=== PATIENT | female | born 1965 | race Caucasian/White ===

== ENCOUNTER 2020-09-30 11:18 | Inpatient (IN) | payer SELFPAY ==
[2020-09-30] VITALS (25 sets, daily range): BP systolic 164–266; BP diastolic 91–152; PULSE 73–110; RESP 16–26; TEMP 36.4–37; O2SAT 96–98; BMI 34.3; BMI 41.6
--- NOTE | 2020-09-30 11:35 | CTR_ITS ---
PROCEDURE INFORMATION: Exam: CT Head Without Contrast Exam date and time: 09/30/2020 11:37 AM Age: 55 years old Clinical indication: Altered mental status/memory loss; Confusion or disorientation; Additional info: Symptoms of acute stroke TECHNIQUE: Imaging protocol: Computed tomography of the head without contrast. Radiation optimization: All CT scans at this facility use at least one of these dose optimization techniques: automated exposure control; mA and/or kV adjustment per patient size (includes targeted exams where dose is matched to clinical indication); or iterative reconstruction. COMPARISON: No relevant prior studies available. RADIATION DOSE METRICS: Total DLP (mGy-cm): 771.26 FINDINGS: Brain: There is a focus of decreased attenuation in the genu of the internal capsule on the right, consistent with infarct. No hemorrhage. Unremarkable white matter. No mass effect or midline shift. Cerebral ventricles: No ventriculomegaly. Bones/joints: Unremarkable. No acute fracture. Paranasal sinuses: Visualized sinuses are unremarkable. No fluid levels. Mastoid air cells: Visualized mastoid air cells are well aerated. Soft tissues: Unremarkable. CT/CT head wo con* [id number] IMPRESSION: Focal area of infarction at the genu of the internal capsule on the right. Radiation Dose CTDIVOL = (mGy): DLP = 771.26 (mGy-cm)
--- NOTE | 2020-09-30 11:35 | XRR_ITS ---
PROCEDURE INFORMATION: Exam: XR Chest, 1 View Exam date and time: 09/30/2020 12:14 PM Age: 55 years old Clinical indication: Other: Left sided weakness; Additional info: Reduced breath sounds. TECHNIQUE: Imaging protocol: XR of the chest Views: 1 view. COMPARISON: No relevant prior studies available. FINDINGS: Lungs: Unremarkable. No consolidation. Pleural spaces: Unremarkable. No pleural effusion. No pneumothorax. Heart/Mediastinum: Unremarkable. No cardiomegaly. Bones/joints: Unremarkable. XR/XR chest 1V portable [id number] IMPRESSION: No acute findings.
--- NOTE | 2020-09-30 11:49 | ECG_ITS ---
[facility] Test Date: 2020-09-30 Pat Name: Jazmin Acevedo Department: Room: Gender: Female Coding Analyst: : 1965 Requested By: Carlos Manuel Baum Order Number: [id number] Linda MD: Jacqueline Higuera M.D. Measurements Intervals [place] Rate: 102 P: 54 MO: 160 QRS: 10 QRSD: 83 T: 105 QT: 321 QTc: 420 Interpretive Statements SINUS TACHYCARDIA POSSIBLE LEFT ATRIAL ENLARGEMENT [-0.1mV P WAVE IN V1/V2] LEFT VENTRICULAR HYPERTROPHY AND ST-T CHANGE [VOLTAGE CRITERIA PLUS ST/T ABNORMALITY] POSSIBLE SEPTAL MYOCARDIAL INFARCTION , OF INDETERMINATE AGE [30 ms Q WAVE IN V1/V2] No previous ECG available for comparison Electronically Signed On 09-30-2020 18:36:54 CHICKEN FANCIER by Jacqueline Higuera M.D. [id number]
[2020-09-30 11:51] LABS: Glucose Point of Care 167 mg/dL (70-110)
[2020-09-30 11:55] LABS: Basophils # 0.1 10^3/uL (0.0-0.1); Basophils % 1.1 %; Eosinophils # 0.2 10^3/uL (0.0-0.8); Eosinophils % 2.1 %; Hematocrit 50.9 % (37.0-47.0); Hemoglobin 16.8 g/dL (11.5-15.3); Lymphocytes # 2.2 10^3/uL (0.8-4.8); Lymphocytes % 23.5 %; Mean Corpuscular Hemoglobin 30.1 pg (28.0-34.0); Mean Corpuscular Volume 91.1 fL (81-99); Monocytes # 0.6 10^3/uL (0.2-0.9); Monocytes % 5.9 %; Nucleated Red Blood Cells % 0 %; Platelet Count 252 10^3/cmm (130-400); Red Blood Count 5.59 10^6/uL (4.1-5.3); Red Cell Distribution Width 13.2 % (12.1-15.1); White Blood Count 9.4 10^3/uL (4.0-10.0)
[2020-09-30] MEDS: LORazepam 2 mg/mL INJ 1 mL 1 MG IVP (11:57)
[2020-09-30 12:06] LABS: INR 0.91 (0.8-1.2); Partial Thromboplastin Time 28.1 SECONDS (23.9-36.7)
[2020-09-30] MEDS: amlodipine 5 mg Tablet 2.5 MG PO (12:15)
[2020-09-30] MEDS: morphine 4 mg/mL SDV 1 mL 2 MG IVP (12:15)
--- NOTE | 2020-09-30 12:21 | CTR_ITS ---
PROCEDURE INFORMATION: Exam: CT Angiography Head With Contrast, Arteries Exam date and time: 09/30/2020 12:39 PM Age: 55 years old Clinical indication: Other: Left side weakness; Additional info: Acute CVA TECHNIQUE: Imaging protocol: Computed tomography angiography of the head with intravenous contrast. 3D rendering (Not supervised by radiologist): MIP and/or 3D reconstructed images were created by the technologist. Radiation optimization: All CT scans at this facility use at least one of these dose optimization techniques: automated exposure control; mA and/or kV adjustment per patient size (includes targeted exams where dose is matched to clinical indication); or iterative reconstruction. Contrast material: OMNI 350; Contrast volume: 95 ml; Contrast route: INTRAVENOUS (IV); COMPARISON: No relevant prior studies available. RADIATION DOSE METRICS: Total DLP (mGy-cm): 2444.28 FINDINGS: ANTERIOR CIRCULATION: Right internal carotid artery: There is atherosclerotic plaque most prominent in the carotid siphons with luminal irregularity. Intracranial segment is patent with no significant stenosis. No aneurysm. Right middle cerebral artery: Unremarkable. No occlusion or significant stenosis. No aneurysm. Right anterior cerebral artery: Unremarkable. No occlusion or significant stenosis. No aneurysm. Left internal carotid artery: There is atherosclerotic plaque most prominent in the carotid siphons with luminal irregularity. Intracranial segment is patent with no significant stenosis. No aneurysm. Left middle cerebral artery: Unremarkable. No occlusion or significant stenosis. No aneurysm. Left anterior cerebral artery: Unremarkable. No occlusion or significant stenosis. No aneurysm. POSTERIOR CIRCULATION: Right vertebral artery: Normal variant hypoplastic right vertebral artery. No occlusion or significant stenosis. No aneurysm. Left vertebral artery: Patient is left vertebral artery dominant. No occlusion or significant stenosis. No aneurysm. Basilar artery: Unremarkable. No occlusion or significant stenosis. No aneurysm. Right posterior cerebral artery: Unremarkable. No occlusion or significant stenosis. No aneurysm. Left posterior cerebral artery: Unremarkable. No occlusion or significant stenosis. No aneurysm. Brain: No definite mass, mass effect, or midline shift. Cerebral ventricles: No ventriculomegaly. Bones/joints: Unremarkable. No acute fracture. Soft tissues: Unremarkable. IMPRESSION: No large vessel stenosis or occlusion. PROCEDURE INFORMATION: Exam: CT Angiography Neck With Contrast Exam date and time: 09/30/2020 12:39 PM Age: 55 years old Clinical indication: Other: Left side weakness; Additional info: Acute CVA TECHNIQUE: Imaging protocol: Computed tomography angiography of the neck with intravenous contrast. 3D rendering (Not supervised by radiologist): MIP and/or 3D reconstructed images were created by the technologist. Radiation optimization: All CT scans at this facility use at least one of these dose optimization techniques: automated exposure control; mA and/or kV adjustment per patient size (includes targeted exams where dose is matched to clinical indication); or iterative reconstruction. Contrast material: OMNI 350; Contrast volume: 95 ml; Contrast route: INTRAVENOUS (IV); COMPARISON: No relevant prior studies available. RADIATION DOSE METRICS: Total DLP (mGy-cm): 2444.28 FINDINGS: Motion artifact does moderately limit the sensitivity of this examination. Right common carotid artery: No stenosis. No dissection or occlusion. Right internal carotid artery: There is atherosclerotic plaque at the origin with a short segment of 50% stenosis measuring 5 mm in the craniocaudad dimension. Right external carotid artery: No occlusion or stenosis of the origin. Right vertebral artery: No stenosis. No dissection or occlusion. Left common carotid artery: No stenosis. No dissection or occlusion. Left internal carotid artery: There is atherosclerotic plaque at the origin with a short segment of 40% stenosis at the origin. Left external carotid artery: No occlusion or stenosis of the origin. Left vertebral artery: Scattered atherosclerotic plaque. No stenosis. No dissection or occlusion. Bones/joints: No acute fracture. Soft tissues: Normal. No significant soft tissue swelling. CT/CT angio headneck* [id number] IMPRESSION: There is atherosclerotic plaque at the origins of the right and left internal carotid arteries with short segments of stenosis as described above. REFERENCES: NASCET CRITERIA. The degree of internal carotid artery stenosis is based on NASCET criteria. Normal is no stenosis. Mild is less than 50% stenosis. Moderate is 50-69% stenosis. Severe is 70% to 99% stenosis. Total occlusion is no detectable patent lumen. Radiation Dose CTDIVOL = (mGy): DLP = 2444.28~2444.28 (mGy-cm)
[2020-09-30 12:38] LABS: Alanine Aminotransferase 39 U/L (0-33); Alkaline Phosphatase 142 IU/L (35-105); Blood Urea Nitrogen 13 mg/dL (6-20); Calcium 10.6 mg/dL (8.5-10.5); Carbon Dioxide 24 mmol/L (22-29); Chloride 101 mmol/L (98-107); Globulin 2.7 g/dL (1.3-4.6); Glomerular Filtration Rate 103.8 mL/min (90-130); Glucose 146 mg/dL (65-115); Osmolality Calculated 289 mOsm/kg (285-295); Sodium 138 mmol/L (136-145); Total Bilirubin 0.4 mg/dL (0.15-1.2); Total Protein 7.7 g/dL (6.6-8.7)
[2020-09-30 12:39] LABS: Troponin(5th) Baseline 17 ng/L (0-10)
[2020-09-30 12:41] LABS: Anion Gap 16.8 (5-19)
[2020-09-30 12:42] LABS: Aspartate Amino Transferase 36 U/L (0-32); Potassium 3.8 mmol/L (3.5-5.1)
[2020-09-30] MEDS: iohexol 350 mg/mL 100 mL Btl IV (12:58)
--- NOTE | 2020-09-30 12:59 | W.ED.NEUROSD ---
HPI - Neuro Symptoms/Deficit General: Chief Complaint: Neuro Symptoms/Deficit Stated Complaint: Left side numb/poss Stroke Time Seen by Provider: 09/30/20 11:25 History of Present Illness: HPI Narrative: The patient is a 55-year-old female who comes to the ER complaining of left-sided numbness. She says approximately 30 minutes to an hour prior to arrival she began having left toe then foot then leg numbness which continued to progress to the entire left side of her body including her arm and face. She has never had this before and has no medical problems. Her blood pressure on arrival was 266/107. She says she does not regularly see a doctor however when she checks her blood pressure at home she gets systolic 120s. Her mother had a stroke at 55 years old as well. On exam she has intact sensation so there likely paresthesias. NIH score 1 on arrival. Onset (ago): hour(s) (1) Time: 10:30 Location: left face, left arm and left leg History of same: No Severity: moderate Quality: numb Associated symptoms: Reports no associated symptoms; Deny chest pain or headache(s) Review of Systems General: Reports: 10 or more systems reviewed and unremarkable except in HPI and below Const: Denies: fatigue Eyes: Denies: change in vision, blurry vision or eye redness ENMT: Denies: throat pain, swelling of lips/tongue, ear or mastoid pain or nasal congestion Card: Denies: chest pain, palpitations, irregular heart rhythm, edema, dyspnea on exertion or orthopnea Resp: Denies: dyspnea, productive cough or non-productive cough GI: Denies: abdominal pain, diarrhea or GI cramping : Denies: flank pain, difficulty voiding, urinary frequency or urinary urgency Musc: Denies: neck pain, back pain, extremity pain, joint pain, joint redness, limited range of motion or muscle weakness Skin/Breast: Denies: rash, pruritus, erythema, skin pain or skin tenderness Neuro: Reports: numbness in extremities; Denies: headache(s), weakness in extremities, sensory changes, difficulty walking, dizziness, confusion or Slurred speech present Psych: Denies: anxiety or depression Endo: Denies: polyuria All/Imm: Denies: urticaria, throat swelling or tongue swelling Physical Exam Const: COMMON NORMALS: no acute distress, average body habitus, patient oriented x3, no limitations, healthy appearing, alert and well nourished GENERAL APPEARANCE: cooperative, comfortable, well kempt and well developed ORIENTATION/CONSCIOUSNESS: Yes awake, Yes oriented to person, Yes oriented to place and Yes oriented to time HENMT: COMMON NORMALS: normocephalic, external ears normal and Normal external nose present HEAD & SCALP: normal to inspection and normocephalic NOSE: Normal external nose present EXTERNAL EAR: Yes external ears normal MOUTH: Normal oral and palatal mucosa present THROAT: posterior oropharynx normal Eye: COMMON NORMALS: Equal, round and reactive pupils present and EOMs intact bilaterally GENERAL EYE: appearance normal, both eyes and all related structures PUPIL: Yes Equal, round and reactive pupils present Neck/C-Spine: COMMON NORMALS: full ROM, no lymphadenopathy, no meningeal signs and no JVD GENERAL: Yes normal visual inspection Lymph: LYMPHATIC: no lymphadenopathy noted Chest: COMMONS NORMALS: normal inspection of the chest and normal palpation of entire chest wall Resp: COMMON NORMALS: normal respiratory effort, No retractions, No use of accessory muscles, clear to auscultation bilaterally and percussion normal EFFORT & INSPECTION: Yes able to speak in complete sentences AUSCULTATION: clear to auscultation bilaterally PERCUSSION: percussion normal Cardio: COMMON NORMALS: no JVD, regular rate, regular rhythm, S1 normal heart sound present, S2 normal heart sound present and Peripheral pulses 2+ throughout RATE: regular rate RHYTHM: regular rhythm HEART SOUNDS: S1 normal heart sound present and S2 normal heart sound present PERIPHERAL PULSES: Peripheral pulses 2+ throughout GI: COMMON NORMALS: Normal to inspection, nondistended, normoactive bowel sounds present, Soft to palpation, non-tender and no masses INSPECTION: Yes normal to inspection PALPATION: Yes Soft to palpation : COMMON NORMALS: Yes no CVA tenderness BLADDER/KIDNEY EXAM: Yes no CVA tenderness Back/Pelvis: COMMON NORMALS: no CVA tenderness, thoracic and lumbar spine normal to inspection, no thoracic nor lumbar tenderness and thoraco-lumbar ROM normal Extremity: COMMON NORMALS: normal to inspection, full ROM, capillary refill normal, no joint enlargement and no pedal edema GENERAL: Yes normal exam except as noted Neuro: COMMON NORMALS: patient oriented x3, CN's II-XII intact bilaterally, moves all extremities, no focal motor deficits, no sensory deficits noted and gait normal SENSORIUM/ORIENTATION: Yes alert, Yes oriented to person, Yes oriented to place and Yes oriented to time MENINGEAL SIGNS: Yes no meningeal signs OTHER: She has intact sensation bilaterally so the numbness she is feeling are more likely paresthesias. Full strength in all extremities. No slurred speech. No focal weakness noted. No drift in her extremities. No dysarthria Psych: COMMON NORMALS: mental status grossly normal, Normal thought process present, cooperative, normal affect and speech normal APPEARANCE: Yes well kempt SPEECH: Yes normal speech MOOD & AFFECT: Yes anxious THOUGHT PROCESS: Normal thought process present Skin: COMMON NORMALS: no rashes or lesions noted GENERAL SKIN EXAM: no rashes or lesions noted Course Vital Signs: Vital signs: Vital Signs Temperature 98.6 F 09/30/20 11:20 Pulse Rate 103 H 09/30/20 12:22 Respiratory Rate 20 H 09/30/20 12:22 Blood Pressure 215/97 09/30/20 12:22 Pulse Oximetry 97 09/30/20 12:22 MDM - Neuro Symptoms/Deficit MDM Narrative: Medical decision making narrative: This patient is having an acute CVA located in the right internal capsule. Discussed with Dr. Tan her care. She recommended no blood pressure control. Recommended amlodipine, Plavix, Lipitor, echocardiogram, 20-day event monitor and CT angiogram of the head and neck. Discussed with Dr. Davey who will follow this patient in [facility]. Lab Data: Labs: Lab Results 09/30/20 09/30/20 09/30/20 Range/Units 11:45 11:46 11:46 WBC 9.4 (4.0-10.0) 10^3/ uL RBC 5.59 H (4.1-5.3) 10^6/u L Hgb 16.8 H (11.5-15.3) g/dL Hct 50.9 H (37.0-47.0) % MCV 91.1 (81-99) fL MCH 30.1 (28.0-34.0) pg MCHC 33.0 (30.0-36.0) g/dL RDW 13.2 (12.1-15.1) % Plt Count 252 (130-400) 10^3/c mm MPV 11.0 H (7.4-10.4) fL Neut % (Auto) 67.0 % Lymph % (Auto) 23.5 % [place] % (Auto) 5.9 % Eos % (Auto) 2.1 % Baso % (Auto) 1.1 % Neut # (Auto) 6.30 (1.8-7.7) 10^3/u L Lymph # (Auto) 2.2 (0.8-4.8) 10^3/u L [place] # (Auto) 0.6 (0.2-0.9) 10^3/u L Eos # (Auto) 0.2 (0.0-0.8) 10^3/u L Baso # (Auto) 0.1 (0.0-0.1) 10^3/u L Nucleated RBC % (a uto) 0 % Nucleated RBCs # 0.0 /100WBC PT 12.60 (12.1-14.9) SECO NDS INR 0.91 (0.8-1.2) APTT 28.1 (23.9-36.7) SECO NDS Sodium Potassium Chloride Carbon Dioxide Anion Gap BUN Creatinine GFR Calculation Glucose POC Glucose 167 H (70-110) mg/dL Calculated Osmolal ity Calcium Total Bilirubin AST ALT Alkaline Phosphata se Troponin T Baselin e Total Protein Albumin Globulin 09/30/20 09/30/20 09/30/20 Range/Units 11:46 11:46 12:11 WBC (4.0-10.0) 10^3/ uL RBC (4.1-5.3) 10^6/u L Hgb (11.5-15.3) g/dL Hct (37.0-47.0) % MCV (81-99) fL MCH (28.0-34.0) pg MCHC (30.0-36.0) g/dL RDW (12.1-15.1) % Plt Count (130-400) 10^3/c mm MPV (7.4-10.4) fL Neut % (Auto) % Lymph % (Auto) % [place] % (Auto) % Eos % (Auto) % Baso % (Auto) % Neut # (Auto) (1.8-7.7) 10^3/u L Lymph # (Auto) (0.8-4.8) 10^3/u L [place] # (Auto) (0.2-0.9) 10^3/u L Eos # (Auto) (0.0-0.8) 10^3/u L Baso # (Auto) (0.0-0.1) 10^3/u L Nucleated RBC % (a uto) % Nucleated RBCs # /100WBC PT (12.1-14.9) SECO NDS INR (0.8-1.2) APTT (23.9-36.7) SECO NDS Sodium Cancelled 138 Potassium Cancelled 3.8 Chloride Cancelled 101 Carbon Dioxide Cancelled 24 Anion Gap Cancelled 16.8 BUN Cancelled 13 Creatinine Cancelled 0.6 GFR Calculation Cancelled 103.8 Glucose Cancelled 146 H POC Glucose (70-110) mg/dL Calculated Osmolal ity Cancelled 289 Calcium Cancelled 10.6 H Total Bilirubin Cancelled 0.4 AST Cancelled 36 H ALT Cancelled 39 H Alkaline Phosphata se Cancelled 142 H Troponin T Baselin e Cancelled Total Protein Cancelled 7.7 Albumin Cancelled 5.0 Globulin Cancelled 2.7 09/30/20 Range/Units 12:11 WBC (4.0-10.0) 10^3/ uL RBC (4.1-5.3) 10^6/u L Hgb (11.5-15.3) g/dL Hct (37.0-47.0) % MCV (81-99) fL MCH (28.0-34.0) pg MCHC (30.0-36.0) g/dL RDW (12.1-15.1) % Plt Count (130-400) 10^3/c mm MPV (7.4-10.4) fL Neut % (Auto) % Lymph % (Auto) % [place] % (Auto) % Eos % (Auto) % Baso % (Auto) % Neut # (Auto) (1.8-7.7) 10^3/u L Lymph # (Auto) (0.8-4.8) 10^3/u L [place] # (Auto) (0.2-0.9) 10^3/u L Eos # (Auto) (0.0-0.8) 10^3/u L Baso # (Auto) (0.0-0.1) 10^3/u L Nucleated RBC % (a uto) % Nucleated RBCs # /100WBC PT (12.1-14.9) SECO NDS INR (0.8-1.2) APTT (23.9-36.7) SECO NDS Sodium Potassium Chloride Carbon Dioxide Anion Gap BUN Creatinine GFR Calculation Glucose POC Glucose (70-110) mg/dL Calculated Osmolal ity Calcium Total Bilirubin AST ALT Alkaline Phosphata se Troponin T Baselin e 17 H Total Protein Albumin Globulin Critical Care Time Critical Care Time: Critical Care Time: Yes Total Critical Care Time: 60 Attestation: Acute CVA. Discussion with senior business consultant and hospitalist and patient and family. Discharge Plan Discharge Patient Disposition: Placed in Observation Clinical Impression: Cerebrovascular accident Coding Level of Care Code ED Brick Kiln Burner for Rito Goodson
--- NOTE | 2020-09-30 13:01 | PM.HP ---
Providers/Chief Complaint Admitting Physician: Leno Davey Chief Complaint: Left side numb/poss Stroke History of Present Illness Jazmin Acevedo is a 55 year old female with no significant past medical history, came in with chief complaint of ac onset of tingling and numbness starting from her left toe and then gradually progressing up along her leg.Apart from tingling and numbness, she denied any weakness in any body parts, headache, dizziness, fever, cough ,shortness of breath ,chest pain, nausea ,vomiting. She has history of arrhythmia in the past, for which she was taking digoxin, but stopped taking it around 25 years back. Upon arrival in the ER she was worked up for mentioned complaints. CT head without contrast: There is a focus of decreased attenuation in the genu of the internal capsule on the right, consistent with infarct. No hemorrhage. Unremarkable white matter. No mass effect or midline shift. Cerebral ventricles: No ventriculomegaly. CTA head and neck: No significant stenosis was noted. EKG: Normal sinus rhythm, LVH, possible left atrial enlargement. Dr. Tan was consulted via video conference.She recommended to discharge the patient, and follow her as an outpatient. ER physician was not comfortable to discharge the patient as her blood pressure was extremely high. We started her on aspirin Plavix and Lipitor, as well as she received a dose of amlodipine 2.5 mg orally. Patient was admitted for overnight observation. Review of Systems Const: Denies: fever(s), chills, body aches, change in appetite or diaphoresis Card: Denies: palpitations, edema, swelling of feet/ankles, dyspnea on exertion, orthopnea or leg pain with exertion Resp: Denies: dyspnea, productive cough, wheezing or pain on inspiration GI: Denies: abdominal pain, nausea, vomiting, diarrhea or constipation : Denies: flank pain Musc: Denies: back pain, extremity pain or extremity swelling Neuro: Denies: headache(s), difficulty walking or confusion Medications/Allergies Home Medications Medication Instructions Recorded Confirmed Last Taken Type No Known Home Medications 09/30/20 09/30/20 Unknown History Allergies Allergy/AdvReac Type Severity Reaction Status Date / Time No Known Allergies Allergy Verified 09/30/20 11:25 Vitals/I&O/Wt Last Vital Signs Temp 98.6 F 09/30/20 11:20 Pulse 103 H 09/30/20 12:22 Resp 20 H 09/30/20 12:22 BP 215/97 09/30/20 12:22 Pulse Ox 97 09/30/20 12:22 Weight last 48 hrs Weight 90.718 kg Physical Exam Const: COMMON NORMALS: patient oriented x3 HENMT: COMMON NORMALS: normocephalic and atraumatic HEAD & SCALP: normocephalic and atraumatic Chest: CHEST: Yes Symmetrical chest wall rise Resp: COMMON NORMALS: clear to auscultation bilaterally EFFORT & INSPECTION: Yes symmetric chest movement AUSCULTATION: clear to auscultation bilaterally Cardio: COMMON NORMALS: regular rate, regular rhythm, S1 normal heart sound present, S2 normal heart sound present, No gallops present (Cardio), No murmurs present (Cardio), No rub (Cardio) and Peripheral pulses 2+ throughout RATE: regular rate RHYTHM: regular rhythm HEART SOUNDS: S1 normal heart sound present and S2 normal heart sound present PERIPHERAL PULSES: Peripheral pulses 2+ throughout GI: COMMON NORMALS: Normal to inspection, nondistended, normoactive bowel sounds present, Soft to palpation, non-tender, No hepatosplenomegaly present and no masses AUSCULTATION: Yes normoactive bowel sounds PALPATION: Yes Soft to palpation and Yes No hepatosplenomegaly present RECTAL EXAM: deferred Extremity: COMMON NORMALS: no clubbing, cyanosis or edema and no pedal edema Neuro: COMMON NORMALS: patient oriented x3, CN's II-XII intact bilaterally, moves all extremities, no focal motor deficits, no sensory deficits noted, deep tendon reflexes 2+ bilaterally and gait normal SENSORIUM/ORIENTATION: Yes alert, Yes oriented to person and Yes oriented to time SPEECH: speech normal MOTOR EXAM: 5/5 motor strength present throughout, Pronator motor function not present, no tremor noted, Motor fasciculations not present, Normal motor muscle tone present throughout, Motor abnormalities not present and Abnormal motor strength present OTHER: Sensations intact. Data : 09/30/20 11:46 09/30/20 12:11 A&P Assessment and plan (1) CVA (cerebral vascular accident): Patient presented with chief complaint of acute onset of tingling and numbness starting from her left toe and the gradually progressing up along her leg.She deny any other complain. Aspirin 81 mg po daily Plavix 75 mg po daily Lipitor 40 mg po daily 2 D Echo C.T Head without contrast CTA Head and Neck 3 weeks event Monitor as outpatient. From Cardiology Notified.Orders Placed Status: Acute (2) HTN (hypertension): Admission B/P was 266/107mm hg She received a dose of 2.5 mg po amlodipine.(Given SBP >220 mm Hg and she not being being a Tpa candidate ) B/P target for Ischemic Stroke and not a Tpa Candidate < 220/120 Plan is to allow for permissive HTN for 1 st 24 HRS. Status: Acute Additional A&P Information DVT PPX: Lovenox 40 mg sc daily CODE STATUS: Full code Disposition ;Home In am Attestations Medical Necessity Statement*: Patient needs to be in hospital for management of acute stroke, uncontrolled HTN.Anticipated LOS less then 2 midnights. Coding Level of Care Code Acute Radio Station Operator for g Fwd Exam Comprehensive Diagnoses CVA (cerebral vascular accident) I63.9 HTN (hypertension) I10
--- NOTE | 2020-09-30 13:49 | ECG_ITS ---
[facility] Test Date: 2020-09-30 Pat Name: Jazmin Acevedo Department: Room: 104 Gender: Female Junior Marketing Associate: : 1965 Requested By: Carlos Manuel Baum Order Number: [id number] Mckeon MD: Jacqueline Higuera M.D. Measurements Intervals [place] Rate: 94 P: 58 RI: 156 QRS: 7 QRSD: 84 T: 91 QT: 329 QTc: 412 Interpretive Statements SINUS RHYTHM POSSIBLE LEFT ATRIAL ENLARGEMENT [-0.1mV P WAVE IN V1/V2] POSSIBLE LEFT VENTRICULAR HYPERTROPHY [VOLTAGE CRITERIA PLUS LAE OR QRS WIDENING] POSSIBLE ANTEROSEPTAL MYOCARDIAL INFARCTION , OF INDETERMINATE AGE [30 ms Q WAVE IN V1-V4] MODERATE T-WAVE ABNORMALITY, CONSIDER LATERAL ISCHEMIA [-0.1+ mV T WAVE IN I/aVL/V5/V6] Compared to ECG 09/30/2020 11:32:06 T-wave abnormality now present Possible ischemia now present Sinus tachycardia no longer present ST (T wave) deviation no longer present Myocardial infarct finding still present Electronically Signed On 09-30-2020 18:39:21 FACTORY LABORER by Jacqueline Higuera M.D. [id number]
[2020-09-30 14:22] LABS: Troponin 5 2HR 16.74 ng/L (0-10)
[2020-09-30 14:28] LABS: Troponin 5 2HR Delta -0.26 ABS# (0-10)
[2020-09-30] MEDS: enoxaparin 40 mg/0.4 mL Syringe SUBCUT (14:35)
[2020-09-30] MEDS: atorvastatin 40 mg Tablet PO (14:35)
[2020-09-30] MEDS: aspirin 81 mg EC Tablet PO (14:35)
[2020-09-30] MEDS: clopidogrel 75 mg Tablet PO (14:35)
--- NOTE | 2020-09-30 16:18 | PC.NURSE ---
received into room 104 from er at 1430.report received.pt is alert and awake and oriented x 4.denies pain.sr on monitor.bp elevated.md aware.plavix,asa,and atorvastatin given as ordered.maew.no facial drooping noted.currently c/o numbness in :left lateral calf area,,left lateral thigh,left forearm,and left side of face.oriented to room environment.instructed to notify staff for any increase in numbness,development of weakness in an extremity,headache,chest pain,sob,change in mentation...or for any concerns at all.pt verb understanding of instructions
[2020-09-30 16:36] LABS: Glucose Point of Care 113 mg/dL (70-110)
[2020-09-30 17:14] LABS: Amphetamines Screen Urine Negative (Negative); Barbiturates Screen Urine Negative (Negative); Benzodiazepines Screen Urine Positive (Negative); Cocaine Screen Urine Negative (Negative); Opiate Screen Urine Positive (Negative); PCP Screen Urine Negative (Negative); THC Screen Urine Negative (Negative)
[2020-09-30 17:17] LABS: Urine Appearance Clear (CLEAR); Urine Color Yellow (Yellow); pH Urine 5 (5-7)
[2020-09-30 17:18] LABS: Add Urine Culture? No; Add Urine Microscopic? YES; Bacteria Urine TRACE /hpf; Bilirubin Urine Neg (Negative); Blood Urine 2+ (Negative); Glucose Urine UA Norm (Normal); Ketones Urine Negative (Negative); Leukocyte Esterase Urine Negative (Negative); Nitrate Urine Negative (Negative); Protein Urine 1+ (Negative); RBC Urine 0-4 /hpf (0-2); Squamous Epithelial Cell Urine 0-4 /hpf (0-5); Urobilinogen Urine Norm (Negative); WBC Urine RARE /hpf (0-5)
--- NOTE | 2020-09-30 17:23 | PC.NURSE ---
dr pimentel notified of bp results (checked q 15 min.).dr pimentel wants to be notified if bp greater than 220/120 .
[2020-09-30 18:42] LABS: Troponin 5 6HR 20.61 ng/L (0-10); Troponin 5 6HR Delta 3.61 ng/L (0-12)
--- NOTE | 2020-09-30 21:35 | PC.NURSE ---
PT IS RESTING IN BED. PT DENIES PAIN AT THIS TIME. PT STATES THAT THE NUMBNESS HAS SUBSIDED. WILL CONTINUE TO MONITOR.
[2020-09-30] MEDS: labetalol 5 mg/mL SDV 20mL 20 MG IVP (23:08)
[2020-10-01] VITALS (12 sets, daily range): BP systolic 169–211; BP diastolic 83–114; PULSE 67–94; RESP 17–20; TEMP 36.6–37; O2SAT 94–96
--- NOTE | 2020-10-01 01:18 | PC.NURSE ---
DR WRIGHT WAS NOTIFIED OF PT BP 258/127 WAS RETAKEN 190/122. LABATOLOL 20MG IVP WAS ORDERED. RN GAVE IVP.
--- NOTE | 2020-10-01 04:07 | PC.NURSE ---
PT RESTING IN BED. PT DENIES PAIN. BP REMAINS ELEVATED CURRENTLY 161/81. WILL CONTINUE TO MONITOR.
--- NOTE | 2020-10-01 05:08 | PC.NURSE ---
Received transfer from [facility]
--- NOTE | 2020-10-01 05:15 | PC.NURSE ---
PT WAS TRANSFERRED UP TO [facility] ROOM 259-1. PT WAS OK WITH THE MOVE. REPORT WAS GIVEN TO DAPHNIE. WILL CONTINUE TO MONITOR.
[2020-10-01 05:48] LABS: Basophils # 0.1 10^3/uL (0.0-0.1); Basophils % 1.1 %; Eosinophils # 0.2 10^3/uL (0.0-0.8); Eosinophils % 2.7 %; Hemoglobin 15.3 g/dL (11.5-15.3); Lymphocytes # 2.7 10^3/uL (0.8-4.8); Lymphocytes % 33.3 %; Mean Corpuscular HGB Conc 31.9 g/dL (30.0-36.0); Mean Corpuscular Hemoglobin 29.8 pg (28.0-34.0); Mean Corpuscular Volume 93.4 fL (81-99); Monocytes # 0.7 10^3/uL (0.2-0.9); Monocytes % 8.2 %; Neutrophils # 4.39 10^3/uL (1.8-7.7); Neutrophils % 54.5 %; Nucleated Red Blood Cells % 0 %; Platelet Count 237 10^3/cmm (130-400); Red Blood Count 5.14 10^6/uL (4.1-5.3); Red Cell Distribution Width 13.3 % (12.1-15.1); White Blood Count 8.1 10^3/uL (4.0-10.0)
[2020-10-01 06:27] LABS: Glucose Point of Care 140 mg/dL (70-110)
[2020-10-01 07:07] LABS: Alanine Aminotransferase 36 U/L (0-33); Albumin Level 4.4 g/dL (3.5-5.2); Alkaline Phosphatase 115 IU/L (35-105); Anion Gap 17.4 (5-19); Aspartate Amino Transferase 30 U/L (0-32); Blood Urea Nitrogen 16 mg/dL (6-20); Calcium 10.5 mg/dL (8.5-10.5); Carbon Dioxide 25 mmol/L (22-29); Chloride 102 mmol/L (98-107); Chol HDL Ratio 8.25 mg/dL (0.0-4.40); Cholesterol 231 mg/dL (0-200); Globulin 2.9 g/dL (1.3-4.6); Glomerular Filtration Rate 86.9 mL/min (90-130); Glucose 100 mg/dL (65-115); HDL Cholesterol 28 mg/dL (60-100); LDL Cholesterol Calculated 123 mg/dL (50-129); LDL HDL Ratio 4.39 RATIO (0.00-3.22); Magnesium 2.2 mg/dL (1.7-2.3); Osmolality Calculated 293 mOsm/kg (285-295); Potassium 3.4 mmol/L (3.5-5.1); Sodium 141 mmol/L (136-145); Thyroid Stimulating Hormone 0.86 uIU/mL (0.27-4.20); Total Bilirubin 0.5 mg/dL (0.15-1.2); Total Protein 7.3 g/dL (6.6-8.7); Triglycerides 398 mg/dL (0-150)
[2020-10-01] MEDS: aspirin 81 mg EC Tablet PO (08:17)
[2020-10-01] MEDS: atorvastatin 40 mg Tablet PO (08:17)
[2020-10-01] MEDS: clopidogrel 75 mg Tablet PO (08:17)
--- NOTE | 2020-10-01 09:07 | P.PNCC_ITS ---
Stroke Alert Activation ED Arrival Date: 09/30/20 Other Last Known Well Infomation: This 55-year-old woman presented to the emergency department complaining of left-sided paresthesias. The symptoms began a little over an hour ago in her left leg, ascended to the left arm and face. By the time she was examined by Dr. Bailon, the symptoms in her left leg had subsided. Stroke alert was activated and I talked with Dr. Bailon about the patient and reviewed her story. CT scan of the head was performed acutely and those results were not available at the time that I examined the patient. She had no drift. Fine finger movements in the hands were rapid and symmetric. She was almost symptom-free by the time I finished my telemetry exam. I talked with Dr. Bailon and recommended Plavix, aspirin and a statin with outpatient work-up including MRI of the brain if needed and I would see her within 2 weeks. A few minutes after I hung up from the discussion with him radiology read her CAT scan is showing an acute lacunar infarct in the internal capsule. I recommended inpatient work-up including CTA and echocardiogram, antiplatelet therapy, extended cardiac monitoring for 20 days and permissive blood pressure management. I did not recommend TPA because the patient's NIH stroke scale score was 0. Stroke Alert Activated by: Triage Stroke Alert Activation Time: 11:36 Stroke MD @ Bedside Time: 11:50 NIH Stroke Scale Time: 11:59 NIH stroke score NIHSS: Level Of Consciousness - 1a: 0 Level Of Consciousness Questions - 1b: Both Correct Level Of Consciousness Commands - 1c: Both Correct Best Gaze - 2: Normal Visual Uman[place]or - 3: No Visual Loss Facial Palsy - 4: Normal Motor Arm Right - 5: No Drift Motor Arm Left - 5: No Drift Motor Leg Right - 6: No Drift Motor Leg Left - 6: No Drift Limb Ataxia - 7: Absent Sensory - 8: Normal Best Language - 9: No Aphasia Dysarthia - 10: Normal Extinction And Inattention - 11: 0 Score: Total Score: 0 Stroke Alert Data/Treatment Time to CT of Head: 11:36 CT Results Time: 12:05 CT Impression: Subcortical stroke right internal capsule Stroke Risk Factors: hypertension and obesity tPA Contraindication: tPA Contraindication: Treatment not indcated tPA Admin Prior to Arrival: No Patient & Family Educated on: Treament Plan Standardized Stroke Orders Used: Yes Critical Care Time Critical Care Time: less than 30 mins A&P Assessment and plan (1) Right-sided lacunar stroke: 55-year-old woman who normally monitors her blood pressure at home and it is good. Today her blood pressure is extremely high. I recommended against acute treatment of her blood pressure and explained that her blood pressure elevation is secondary to her stroke and that we do not want to drop her blood pressure for the danger of extending what appears to be a lacunar stroke in the right internal capsule. I recommended aggressive stroke work-up, antiplatelet therapy with Plavix and aspirin and statin therapy. She can be seen in my office within 2 weeks. I do not think she needs an MRI because the diagnosis is not in doubt. Status: Acute Coding Level of Care Code Acute Press Machine Operator for Rito Goodson Diagnoses Right-sided lacunar stroke I63.81
--- NOTE | 2020-10-01 09:41 | PC.CHAP ---
Pastoral Care Encounter/Spiritual Assessment Type of Contact [] Declined cinder snapper visit [] Patient/Family/Request visit [] Outpatient visit [] Follow-up visit [] Physician referral [] Code/Alert [x] Routine visit [] Staff referral [] Actively dying [] Patient sleeping [] Family support [] [] Out of room [] Palliative care [] [] Receiving care in room [] Pre-surgical visit [] Trauma [] Long length of stay [] ICU visit [] Other: Relational/Emotional Strength [x] Patient feels connected with others/family/visitors/staff [] Distress [] Loneliness/isolation [] Abandonment Spirituality of Patient [x] Person of Tiffanie [] Attends Gnosticist of their Tiffanie [] Believes in Prayer [] Reads Bible or Caodaism materials [] There are Spiritual issues to be addressed Avionics Systems Engineer Interventions [x] Prayer [x] Active listening [] Non-anxious presence [] Spiritual/emotional support [] Crisis/trauma care [] Spiritual counseling [] Bereavement support [] Provided bereavement packet [] Provided Bible/devotional materials [] Provided toy/stuffed animal, coloring book to patient or family member [] Provided Communion [] Anointing/[place] [] Salvation [x] Completed spiritual assessment [] Other: Impact on Illness or Injury [] Angry [] Fearful [] Anxious [] Often cries [] Exhaustion [] Unable to work [] Unable to attend baptist [] Unable to walk/stand [] Unable to read [] Unable to drive [] Unable to eat/drink [] Unable to sleep [] Unable to be with family [] Patient intubated [] Other: Summary doing better wants to go home Time spent with patient 10 min
--- NOTE | 2020-10-01 14:09 | USCV_ITS ---
AcevedoJazmin sanchez Age: 55 Gender: F : 1965 Exam Date: 09/30/2020 15:06 Ordering Phys: Leno Davey MD Technologist: Minda Bower Exam Location: [facility] [place] Indication: Stroke BP: 234 / 125 HR: 89 Rhythm: Sinus Technical Quality: Technically difficult study MEASUREMENTS (Male / Female) Normal Values 2D ECHO LV Diastolic Diameter PLAX 3.4 cm 4.2 - 5.9 / 3.9 - 5.3 cm LV Systolic Diameter PLAX 2.0 cm LV Chamber Size 4.5 cm IVS Diastolic Thickness 2.3 cm 0.6 - 1.0 / 0.6 - 0.9 cm IVS Systolic Thickness 2.3 cm LVPW Diastolic Thickness 2.0 cm 0.6 - 1.0 / 0.6 - 0.9 cm LVPW Systolic Thickness 2.4 cm RV Chamber Size 1.8 cm LVOT Diameter 2.0 cm LV Ejection Fraction 2D Teich 72.3 % LA Diameter 2.9 cm LA Width 3.0 cm LA Height 5.4 cm RA Width 2.1 cm RA Height 4.7 cm Aorta at Sinotubular Diameter 2.3 cm M-MODE LV Diastolic Diameter MM 4.7 cm 4.2 - 5.9 / 3.9 - 5.3 cm LV Systolic Diameter MM 3.0 cm LV Ejection Fraction MM Teich 65.6 % IVS Diastolic Thickness MM 1.7 cm 0.6 - 1.0 / 0.6 - 0.9 cm IVS Systolic Thickness MM 2.4 cm LVPW Diastolic Thickness MM 1.7 cm 0.6 - 1.0 / 0.6 - 0.9 cm LVPW Systolic Thickness MM 1.8 cm RV Diastolic Diameter MM 1.6 cm Aortic Annulus Diameter 2.9 cm LA Ao Ratio MM 1.2 MV E Point Septal Separation 0.8 cm DOPPLER AV Peak Velocity 168.0 cm/s LVOT Peak Velocity 97.0 cm/s AV Area Cont Eq vti 2.0 cm squared AV Area Cont Eq pk 1.8 cm squared MV Area PHT 4.4 cm squared Mitral E to A Ratio 0.7 MV E' Velocity 41.0 cm/s Mitral E to MV E' Ratio 12.0 Mitral E to LV E' Lateral Ratio 10.2 Mitral E to LV E' Septal Ratio 14.8 TV Peak E Velocity 69.3 cm/s PV Peak Velocity 83.0 cm/s RV Acceleration Time 0.1 s RV Ejection Time 0.2 s RV AcT/ET 0.4 FINDINGS Left Ventricle Normal left ventricle size and systolic function. Left ventricular ejection fraction is estimated at 65-70 %. No regional wall motion abnormalities. Grade I diastolic dysfunction (abnormal relaxation filling pattern), normal to mildly elevated filling pressures. No evidence of left ventricular apical thrombus. Right Ventricle Normal right ventricular size and systolic function. Right Atrium Normal right atrial size. Left Atrium Normal left atrial size. Mitral Valve Mildly thickened mitral valve. Aortic Valve Aortic valve not well visualized. No aortic valve stenosis. Tricuspid Valve Tricuspid valve not well visualized. Pulmonic Valve Pulmonic valve not well visualized. No pulmonary valve stenosis. Pericardium Trivial pericardial effusion. Aorta Aorta not well visualized. CONCLUSIONS 1. This is a technically very difficult study. Ultrasound enhancing agent Optison was used. 2. Normal left ventricle size and systolic function. Left ventricular ejection fraction is estimated at 65-70 %. No regional wall motion abnormalities. Grade I diastolic dysfunction (abnormal relaxation filling pattern), normal to mildly elevated filling pressures. No evidence of left ventricular apical thrombus. 3. Normal right ventricular size and systolic function. 4. No cardioembolic source of stroke based on the study. 5. No prior similar studies to compare. Jacqueline Higuera MD (Electronically Signed) Final Date: 02 October 2020 12:39 S
[2020-10-01] MEDS: enoxaparin 40 mg/0.4 mL Syringe SUBCUT (15:24)
--- NOTE | 2020-10-01 16:31 | PC.OT ---
OT screen completed. Pt independently transferred from bed to bathroom, demonstrates WFL BUE ROM and strength, is able to write. She reported the only problem is some numbness in her left fingers. No OT recommended at this time.
--- NOTE | 2020-10-01 16:52 | PM.PN ---
Subjective Subjective: Interval history: No new complaints today. PT, OT, speech evaluation ordered Blood pressure running between 1 80-200 systolic, allowing for permissive hypertension per neurology recommendations currently Medications: Reviewed: Yes Vitals/I&O/Wt Last Vital Signs Temp 98.1 F 10/01/20 15:06 Pulse 83 10/01/20 15:06 Resp 20 H 10/01/20 15:06 BP 206/92 10/01/20 15:06 Pulse Ox 96 10/01/20 15:06 10/01/20 10/01/20 10/01/20 06:59 14:59 22:59 Intake Total 50 / 530 900 / 900 Balance 50 / 530 900 / 900 Weight last 48 hrs Weight 109.996 kg Weight 90.718 kg Physical Exam Narrative: EXAM NARRATIVE: GEN: Awake, alert and oriented, no acute distress CVS: S1S2 N RS: CTA B/L Abd: Soft, nt/nd , bs+ VP PRODUCT: no focal neuro deficits Data : 10/01/20 03:32 10/01/20 03:32 CT Head: I personally reviewed and interpreted this imaging study as follows: My impression: Laboratory Results WBC 8.1 10^3/uL (4.0-10.0) 10/01/20 03:32 RBC 5.14 10^6/uL (4.1-5.3) 10/01/20 03:32 Hgb 15.3 g/dL (11.5-15.3) 10/01/20 03:32 Hct 48.0 % (37.0-47.0) H 10/01/20 03:32 MCV 93.4 fL (81-99) 10/01/20 03:32 MCH 29.8 pg (28.0-34.0) 10/01/20 03:32 MCHC 31.9 g/dL (30.0-36.0) 10/01/20 03:32 RDW 13.3 % (12.1-15.1) 10/01/20 03:32 Plt Count 237 10^3/cmm (130-400) 10/01/20 03:32 MPV 11.0 fL (7.4-10.4) H 10/01/20 03:32 Neut % (Auto) 54.5 % 10/01/20 03:32 Lymph % (Auto) 33.3 % 10/01/20 03:32 Bertie % (Auto) 8.2 % 10/01/20 03:32 Eos % (Auto) 2.7 % 10/01/20 03:32 Baso % (Auto) 1.1 % 10/01/20 03:32 Neut # (Auto) 4.39 10^3/uL (1.8-7.7) 10/01/20 03:32 Lymph # (Auto) 2.7 10^3/uL (0.8-4.8) 10/01/20 03:32 Bertie # (Auto) 0.7 10^3/uL (0.2-0.9) 10/01/20 03:32 Eos # (Auto) 0.2 10^3/uL (0.0-0.8) 10/01/20 03:32 Baso # (Auto) 0.1 10^3/uL (0.0-0.1) 10/01/20 03:32 Nucleated RBC % (auto) 0 % 10/01/20 03:32 Nucleated RBCs # 0.0 /100WBC 10/01/20 03:32 PT 12.60 SECONDS (12.1-14.9) 09/30/20 11:46 INR 0.91 (0.8-1.2) 09/30/20 11:46 APTT 28.1 SECONDS (23.9-36.7) 09/30/20 11:46 Sodium 141 mmol/L (136-145) 10/01/20 03:32 Potassium 3.4 mmol/L (3.5-5.1) L 10/01/20 03:32 Chloride 102 mmol/L (98-107) 10/01/20 03:32 Carbon Dioxide 25 mmol/L (22-29) 10/01/20 03:32 Anion Gap 17.4 (5-19) 10/01/20 03:32 BUN 16 mg/dL (6-20) 10/01/20 03:32 Creatinine 0.7 mg/dL (0.5-0.9) 10/01/20 03:32 GFR Calculation 86.9 mL/min (90-130) L 10/01/20 03:32 Glucose 100 mg/dL (65-115) 10/01/20 03:32 POC Glucose 140 mg/dL (70-110) H 10/01/20 06:16 Calculated Osmolality 293 mOsm/kg (285-295) 10/01/20 03:32 Calcium 10.5 mg/dL (8.5-10.5) 10/01/20 03:32 Magnesium 2.2 mg/dL (1.7-2.3) 10/01/20 03:32 Total Bilirubin 0.5 mg/dL (0.15-1.2) 10/01/20 03:32 AST 30 U/L (0-32) 10/01/20 03:32 ALT 36 U/L (0-33) H 10/01/20 03:32 Alkaline Phosphatase 115 IU/L (35-105) H 10/01/20 03:32 Troponin T Baseline 17 ng/L (0-10) H 09/30/20 12:11 Troponin T 120 Minute 16.74 ng/L (0-10) H 09/30/20 13:55 Delta Troponin T -0.26 ABS# (0-10) L 09/30/20 13:55 Troponin T Hi Sens 6Hr 20.61 ng/L (0-10) H 09/30/20 18:15 Troponin T Hi Sens 6Hr Delta 3.61 ng/L (0-12) 09/30/20 18:15 Total Protein 7.3 g/dL (6.6-8.7) 10/01/20 03:32 Albumin 4.4 g/dL (3.5-5.2) 10/01/20 03:32 Globulin 2.9 g/dL (1.3-4.6) 10/01/20 03:32 Triglycerides 398 mg/dL (0-150) H 10/01/20 03:32 Cholesterol 231 mg/dL (0-200) H 10/01/20 03:32 LDL Cholesterol, Calc 123 mg/dL (50-129) 10/01/20 03:32 HDL Cholesterol 28 mg/dL (60-100) L 10/01/20 03:32 LDL/HDL Ratio 4.39 RATIO (0.00-3.22) H 10/01/20 03:32 Cholesterol/HDL Ratio 8.25 mg/dL (0.0-4.40) H 10/01/20 03:32 TSH 0.86 uIU/mL (0.27-4.20) 10/01/20 03:32 Urine Color Yellow (Yellow) 09/30/20 15:30 Urine Appearance Clear (CLEAR) 09/30/20 15:30 Urine pH 5 (5-7) 09/30/20 15:30 Ur Specific [place] 1.010 (1.005-1.030) 09/30/20 15:30 Urine Protein 1+ (Negative) H 09/30/20 15:30 Urine Glucose (UA) Norm (Normal) 09/30/20 15:30 Urine Ketones Negative (Negative) 09/30/20 15:30 Urine Blood 2+ (Negative) H 09/30/20 15:30 Urine Nitrate Negative (Negative) 09/30/20 15:30 Urine Bilirubin Neg (Negative) 09/30/20 15:30 Urine Urobilinogen Norm mg/dL (Negative) 09/30/20 15:30 Ur Leukocyte Esterase Negative (Negative) 09/30/20 15:30 Urine RBC 0-4 /hpf (0-2) H 09/30/20 15:30 Urine WBC Rare /hpf (0-5) 09/30/20 15:30 Ur Squamous Epith Cells 0-4 /hpf (0-5) H 09/30/20 15:30 Amorphous Sediment Not Reportable 09/30/20 15:30 Urine Bacteria Trace /hpf (NONE) 09/30/20 15:30 Urine Opiates Screen Positive ng/mL (Negative) H 09/30/20 15:30 Ur Barbiturates Screen Negative ng/mL (Negative) 09/30/20 15:30 Ur Phencyclidine Scrn Negative ng/mL (Negative) 09/30/20 15:30 Ur Amphetamines Screen Negative ng/mL (Negative) 09/30/20 15:30 U Benzodiazepines Scrn Positive ng/mL (Negative) H 09/30/20 15:30 Urine Cocaine Screen Negative ng/mL (Negative) 09/30/20 15:30 U Marijuana (THC) Screen Negative ng/mL (Negative) 09/30/20 15:30 Impressions Chest X-Ray 09/30/20 11:35 IMPRESSION: No acute findings. Head CT 09/30/20 11:35 IMPRESSION: Focal area of infarction at the genu of the internal capsule on the right. Radiation Dose CTDIVOL = (mGy): DLP = 771.26 (mGy-cm) Head/Neck CTA 09/30/20 12:21 IMPRESSION: There is atherosclerotic plaque at the origins of the right and left internal carotid arteries with short segments of stenosis as described above. REFERENCES: NASCET CRITERIA. The degree of internal carotid artery stenosis is based on NASCET criteria. Normal is no stenosis. Mild is less than 50% stenosis. Moderate is 50-69% stenosis. Severe is 70% to 99% stenosis. Total occlusion is no detectable patent lumen. Radiation Dose CTDIVOL = (mGy): DLP = 2444.28~2444.28 (mGy-cm) A&P Assessment and plan (1) CVA (cerebral vascular accident): Patient presented with chief complaint of acute onset of tingling and numbness starting from her left toe and the gradually progressing up along her leg. CT of the head shows Focal area of infarction at the genu of the internal capsule on the right. CTA of the head and neck without any large vessel stenosis or occlusion. TPA not recommended after neurology assessment is NIH stroke scale was 0. Continue aspirin 81 mg po daily, Plavix 75 mg po daily, Lipitor 40 mg po daily. Allowing for permissive hypertension at this present time. Systolic blood pressure ranging between 1 70-200, will aim for better control after 48 hours of acute stroke. 2 D Echo taken and pending 3 weeks event Monitor as outpatient. From Cardiology Notified.Orders Placed Status: Acute (2) HTN (hypertension): Admission B/P was 266/107mm hg B/P target for Ischemic Stroke and not a Tpa Candidate < 220/120 Plan is to allow for permissive HTN for the first 24-48 hrs Status: Acute Additional A&P Information DVT PPX: Lovenox 40 mg sc daily CODE STATUS: Full code Dispo: likely home when ready, needs to be set up with outpatient care, currently does not have a PCP due to lack of insurance Attestations Medical Necessity Statement*: needs therapy assessments with PT/OT/ST, better BP control to be initiated over the next 24 hrs, currently allowing permissive HTN Coding Level of Care Code Acute Mortgage Loan Computation Clerk for Chg Fwd Diagnoses CVA (cerebral vascular accident) I63.9 HTN (hypertension) I10
[2020-10-01 17:37] LABS: Estmated Average Glucose 128; Hemoglobin A1C 6.1 % (4.0-6.0)
[2020-10-01 20:46] LABS: Glucose Point of Care 113 mg/dL (70-110)
[2020-10-02] VITALS (7 sets, daily range): BP systolic 173–209; BP diastolic 77–117; PULSE 82–91; RESP 18; TEMP 36.6–36.8; O2SAT 94–96
[2020-10-02 06:11] LABS: Basophils # 0.1 10^3/uL (0.0-0.1); Basophils % 0.9 %; Eosinophils # 0.2 10^3/uL (0.0-0.8); Eosinophils % 3.2 %; Hematocrit 49.1 % (37.0-47.0); Lymphocytes # 2.6 10^3/uL (0.8-4.8); Lymphocytes % 34.6 %; Mean Corpuscular HGB Conc 32.6 g/dL (30.0-36.0); Mean Corpuscular Hemoglobin 30.1 pg (28.0-34.0); Mean Corpuscular Volume 92.3 fL (81-99); Mean Platelet Volume 10.8 fL (7.4-10.4); Monocytes # 0.5 10^3/uL (0.2-0.9); Neutrophils % 54.2 %; Nucleated Red Blood Cells % 0 %; Platelet Count 246 10^3/cmm (130-400); Red Blood Count 5.32 10^6/uL (4.1-5.3); Red Cell Distribution Width 13.1 % (12.1-15.1); White Blood Count 7.4 10^3/uL (4.0-10.0)
[2020-10-02 06:36] LABS: Alanine Aminotransferase 35 U/L (0-33); Albumin Level 4.5 g/dL (3.5-5.2); Alkaline Phosphatase 124 IU/L (35-105); Anion Gap 13.6 (5-19); Aspartate Amino Transferase 28 U/L (0-32); Blood Urea Nitrogen 13 mg/dL (6-20); Calcium 10.6 mg/dL (8.5-10.5); Carbon Dioxide 28 mmol/L (22-29); Chloride 103 mmol/L (98-107); Glomerular Filtration Rate 74.5 mL/min (90-130); Glucose 123 mg/dL (65-115); Osmolality Calculated 293 mOsm/kg (285-295); Potassium 3.6 mmol/L (3.5-5.1); Sodium 141 mmol/L (136-145); Total Bilirubin 0.5 mg/dL (0.15-1.2); Total Protein 7.5 g/dL (6.6-8.7)
[2020-10-02 06:42] LABS: Glucose Point of Care 133 mg/dL (70-110)
[2020-10-02] MEDS: clopidogrel 75 mg Tablet PO (08:05)
[2020-10-02] MEDS: aspirin 81 mg EC Tablet PO (08:06)
[2020-10-02] MEDS: atorvastatin 40 mg Tablet PO (08:06)
[2020-10-02] MEDS: amlodipine 5 mg Tablet PO (08:06)
--- NOTE | 2020-10-02 10:14 | PC.CHAP ---
Pastoral Care Encounter/Spiritual Assessment Type of Contact [] Declined at risk specialist visit [] Patient/Family/Request visit [] Outpatient visit [] Follow-up visit [] Physician referral [] Code/Alert [X] Routine visit [] Staff referral [] Actively dying [] Patient sleeping [] Family support [] [] Out of room [] Palliative care [] [] Receiving care in room [] Pre-surgical visit [] Trauma [] Long length of stay [] ICU visit [] Other: Relational/Emotional Strength [X] Patient feels connected with others/family/visitors/staff [] Distress [] Loneliness/isolation [] Abandonment Spirituality of Patient [X] Person of Tiffanie [] Attends Gnosticism of their [place]iffanie [] Believes in Prayer [] Reads Bible or Voodoo materials [] There are Spiritual issues to be addressed Stamping Machine Operator Interventions [X] Prayer [X] Active listening [] Non-anxious presence [] Spiritual/emotional support [] Crisis/trauma care [] Spiritual counseling [] Bereavement support [] Provided bereavement packet [] Provided Bible/devotional materials [] Provided toy/stuffed animal, coloring book to patient or family member [] Provided Communion [] Anointing/[place] [] Salvation [X] Completed spiritual assessment [] Other: Impact on Illness or Injury [] Angry [] Fearful [] Anxious [] Often cries [] Exhaustion [] Unable to work [] Unable to attend temple [] Unable to walk/stand [] Unable to read [] Unable to drive [] Unable to eat/drink [] Unable to sleep [] Unable to be with family [] Patient intubated [] Other: Summary Time spent with patient 10 MIN
--- NOTE | 2020-10-02 11:02 | PM.DCS ---
Discharge Providers Date of Admission: 10/01/20 16:57 Date of Discharge: October 02, 2020 Attending Provider at Admission: Leno Davey MD Attending Provider at Discharge: Donna Jurado MD Diagnoses at Discharge Discharge Diagnosis (1) CVA (cerebral vascular accident): Status: Acute (2) HTN (hypertension): Status: Acute Reason for Visit Reason for Visit: Left side numb/poss Stroke Hospital Course Hospital Course 55-year-old woman presented to the emergency department complaining of left-sided paresthesias. CT of the head shows Focal area of infarction at the genu of the internal capsule on the right. CTA of the head and neck without any large vessel stenosis or occlusion. TPA not recommended after neurology assessment as NIH stroke scale was 0. Recommended management with aspirin 81 mg po daily, Plavix 75 mg po daily, Lipitor 40 mg po daily. Allowed permissive hypertension during admission with systolic blood pressure ranging between 1 70-200, after 48 hrs, BP control initiated with amlodipine. the latter has been continued upon discharge as a new medication. She is advised to maintain a BP chart over the next 2 weeks and bring it to her appoitnment with PCP. f/up was arranged with Dr. Al. f/up with Dr. Tan in 2 weeks. 21 day event monitor has been ordered per neurology recommendations, Dr. Davey discussed f/up of results with frothing machine operator Dr. Higuera. Physical Exam Narrative: EXAM NARRATIVE: GEN: Awake, alert and oriented, no acute distress CVS: S1S2 N RS: CTA B/L Abd: Soft, nt/nd , bs+ DIRECTOR TRADING: no focal neuro deficits Discharge Data Data Completed and Pending: Completed Studies During Hospitalization Category Date Time Status CT angio headneck * [id number] Stat Cat Scan 09/30/20 12:[address] head wo con* 7 [id number] Stat Cat Scan 09/30/20 11:35 Completed XR chest 1V jet ble [id number] Stat Exams 09/30/20 11:35 Completed US/CV paperwork R outine Ultrasound 10/01/20 Completed Pending at discharge Category Date Time Status CA cardiac event monitor Routine Exams 09/30/20 12:47 Ordered Complete Blood Co unt w/Auto AM LABS Lab 10/03/20 04:00 Ordered Comprehensive Met abolic Panel AM LA BS Lab 10/03/20 04:00 Ordered CV echo wo/w cont rast [id number] Routine Ultrasound 10/01/20 14:09 Taken Labs from last 24 hours 10/02/20 10/02/20 10/02/20 06:08 05:32 05:32 WBC 7.4 RBC 5.32 H Hgb 16.0 H Hct 49.1 H MCV 92.3 MCH 30.1 MCHC 32.6 RDW 13.1 Plt Count 246 MPV 10.8 H Neut % (Auto) 54.2 Lymph % (Auto) 34.6 [place] % (Auto) 7.0 Eos % (Auto) 3.2 Baso % (Auto) 0.9 Neut # (Auto) 4.00 Lymph # (Auto) 2.6 [place] # (Auto) 0.5 Eos # (Auto) 0.2 Baso # (Auto) 0.1 Nucleated RBC % (a uto) 0 Nucleated RBCs # 0.0 Sodium 141 Potassium 3.6 Chloride 103 Carbon Dioxide 28 Anion Gap 13.6 BUN 13 Creatinine 0.8 GFR Calculation 74.5 L Glucose 123 H POC Glucose 133 H Estimat Average Gl ucose Hemoglobin A1c Calculated Osmolal ity 293 Calcium 10.6 H Total Bilirubin 0.5 AST 28 ALT 35 H Alkaline Phosphata se 124 H Total Protein 7.5 Albumin 4.5 Globulin 3.0 10/01/20 10/01/20 20:31 03:32 WBC RBC Hgb Hct MCV MCH MCHC RDW Plt Count MPV Neut % (Auto) Lymph % (Auto) [place] % (Auto) Eos % (Auto) Baso % (Auto) Neut # (Auto) Lymph # (Auto) [place] # (Auto) Eos # (Auto) Baso # (Auto) Nucleated RBC % (a uto) Nucleated RBCs # Sodium Potassium Chloride Carbon Dioxide Anion Gap BUN Creatinine GFR Calculation Glucose POC Glucose 113 H Estimat Average Gl ucose 128 Hemoglobin A1c 6.1 H Calculated Osmolal ity Calcium Total Bilirubin AST ALT Alkaline Phosphata se Total Protein Albumin Globulin Addt'l Data from Hospital Stay: Laboratory Results WBC 7.4 10^3/uL (4.0- 10.0) 10/02/20 05:32 RBC 5.32 10^6/uL (4.1 -5.3) H 10/02/20 05:32 Hgb 16.0 g/dL (11.5-1 5.3) H 10/02/20 05:32 Hct 49.1 % (37.0-47.0 ) H 10/02/20 05:32 MCV 92.3 fL (81-99) 10/02/20 05:32 MCH 30.1 pg (28.0-34. 0) 10/02/20 05:32 MCHC 32.6 g/dL (30.0-3 6.0) 10/02/20 05:32 RDW 13.1 % (12.1-15.1 ) 10/02/20 05:32 Plt Count 246 10^3/cmm (130 -400) 10/02/20 05:32 MPV 10.8 fL (7.4-10.4 ) H 10/02/20 05:32 Neut % (Auto) 54.2 % 10/02/20 05:32 Lymph % (Auto) 34.6 % 10/02/20 05:32 [place] % (Auto) 7.0 % 10/02/20 05:32 Eos % (Auto) 3.2 % 10/02/20 05:32 Baso % (Auto) 0.9 % 10/02/20 05:32 Neut # (Auto) 4.00 10^3/uL (1.8 -7.7) 10/02/20 05:32 Lymph # (Auto) 2.6 10^3/uL (0.8- 4.8) 10/02/20 05:32 [place] # (Auto) 0.5 10^3/uL (0.2- 0.9) 10/02/20 05:32 Eos # (Auto) 0.2 10^3/uL (0.0- 0.8) 10/02/20 05:32 Baso # (Auto) 0.1 10^3/uL (0.0- 0.1) 10/02/20 05:32 Nucleated RBC % (a uto) 0 % 10/02/20 05:32 Nucleated RBCs # 0.0 /100WBC 10/02/20 05:32 PT 12.60 SECONDS (12 .1-14.9) 09/30/20 11:46 INR 0.91 (0.8-1.2) 09/30/20 11:46 APTT 28.1 SECONDS (23. 9-36.7) 09/30/20 11:46 Sodium 141 mmol/L (136-1 45) 10/02/20 05:32 Potassium 3.6 mmol/L (3.5-5 .1) 10/02/20 05:32 Chloride 103 mmol/L (98-10 7) 10/02/20 05:32 Carbon Dioxide 28 mmol/L (22-29) 10/02/20 05:32 Anion Gap 13.6 (5-19) 10/02/20 05:32 BUN 13 mg/dL (6-20) 10/02/20 05:32 Creatinine 0.8 mg/dL (0.5-0. 9) 10/02/20 05:32 GFR Calculation 74.5 mL/min (90-1 30) L 10/02/20 05:32 Glucose 123 mg/dL (65-115 ) H 10/02/20 05:32 POC Glucose 117 mg/dL (70-110 ) H 10/02/20 11:00 Estimat Average Gl ucose 128 10/01/20 03:32 Hemoglobin A1c 6.1 % (4.0-6.0) H 10/01/20 03:32 Calculated Osmolal ity 293 mOsm/kg (285- 295) 10/02/20 05:32 Calcium 10.6 mg/dL (8.5-1 0.5) H 10/02/20 05:32 Magnesium 2.2 mg/dL (1.7-2. 3) 10/01/20 03:32 Total Bilirubin 0.5 mg/dL (0.15-1 .2) 10/02/20 05:32 AST 28 U/L (0-32) 10/02/20 05:32 ALT 35 U/L (0-33) H 10/02/20 05:32 Alkaline Phosphata se 124 IU/L (35-105) H 10/02/20 05:32 Troponin T Baselin e 17 ng/L (0-10) H 09/30/20 12:11 Troponin T 120 Min jeff 16.74 ng/L (0-10) H 09/30/20 13:55 Delta Troponin T -0.26 ABS# (0-10) L 09/30/20 13:55 Troponin T Hi Sens 6Hr 20.61 ng/L (0-10) H 09/30/20 18:15 Troponin T Hi Sens 6Hr Delta 3.61 ng/L (0-12) 09/30/20 18:15 Total Protein 7.5 g/dL (6.6-8.7 ) 10/02/20 05:32 Albumin 4.5 g/dL (3.5-5.2 ) 10/02/20 05:32 Globulin 3.0 g/dL (1.3-4.6 ) 10/02/20 05:32 Triglycerides 398 mg/dL (0-150) H 10/01/20 03:32 Cholesterol 231 mg/dL (0-200) H 10/01/20 03:32 LDL Cholesterol, C alc 123 mg/dL (50-129 ) 10/01/20 03:32 HDL Cholesterol 28 mg/dL (60-100) L 10/01/20 03:32 LDL/HDL Ratio 4.39 RATIO (0.00- 3.22) H 10/01/20 03:32 Cholesterol/HDL Ra sushila 8.25 mg/dL (0.0-4 .40) H 10/01/20 03:32 TSH 0.86 uIU/mL (0.27 -4.20) 10/01/20 03:32 Urine Color Yellow (Yellow) 09/30/20 15:30 Urine Appearance Clear (CLEAR) 09/30/20 15:30 Urine pH 5 (5-7) 09/30/20 15:30 Ur Specific Gravit y 1.010 (1.005-1.0 30) 09/30/20 15:30 Urine Protein 1+ (Negative) H 09/30/20 15:30 Urine Glucose (UA) Norm (Normal) 09/30/20 15:30 Urine Ketones Negative (Negati ve) 09/30/20 15:30 Urine Blood 2+ (Negative) H 09/30/20 15:30 Urine Nitrate Negative (Negati ve) 09/30/20 15:30 Urine Bilirubin Neg (Negative) 09/30/20 15:30 Urine Urobilinogen Norm mg/dL (Negat josiah) 09/30/20 15:30 Ur Leukocyte Susie ase Negative (Negati ve) 09/30/20 15:30 Urine RBC 0-4 /hpf (0-2) H 09/30/20 15:30 Urine WBC Rare /hpf (0-5) 09/30/20 15:30 Ur Squamous Epith Cells 0-4 /hpf (0-5) H 09/30/20 15:30 Amorphous Sediment Not Reportable 09/30/20 15:30 Urine Bacteria Trace /hpf (NONE) 09/30/20 15:30 Urine Opiates Scre en Positive ng/mL (N egative) H 09/30/20 15:30 Ur Barbiturates Sc reen Negative ng/mL (N egative) 09/30/20 15:30 Ur Phencyclidine S crn Negative ng/mL (N egative) 09/30/20 15:30 Ur Amphetamines Sc reen Negative ng/mL (N egative) 09/30/20 15:30 U Benzodiazepines Scrn Positive ng/mL (N egative) H 09/30/20 15:30 Urine Cocaine Scre en Negative ng/mL (N egative) 09/30/20 15:30 U Marijuana (THC) Screen Negative ng/mL (N egative) 09/30/20 15:30 Impressions Chest X-Ray 09/30/20 11:35 IMPRESSION: No acute findings. Head CT 09/30/20 11:35 IMPRESSION: Focal area of infarction at the genu of the internal capsule on the right. Radiation Dose CTDIVOL = (mGy): DLP = 771.26 (mGy-cm) Head/Neck CTA 09/30/20 12:21 IMPRESSION: There is atherosclerotic plaque at the origins of the right and left internal carotid arteries with short segments of stenosis as described above. REFERENCES: NASCET CRITERIA. The degree of internal carotid artery stenosis is based on NASCET criteria. Normal is no stenosis. Mild is less than 50% stenosis. Moderate is 50-69% stenosis. Severe is 70% to 99% stenosis. Total occlusion is no detectable patent lumen. Radiation Dose CTDIVOL = (mGy): DLP = 2444.28~2444.28 (mGy-cm) Cardiac Enzymes 10/02/20 Range/Units 05:32 AST 28 (0-32) U/L Comprehensive Metabolic Panel 10/02/20 Range/Units 05:32 Sodium 141 (136-145) mmol/L Potassium 3.6 (3.5-5.1) mmol/L Chloride 103 (98-107) mmol/L Carbon Dioxide 28 (22-29) mmol/L BUN 13 (6-20) mg/dL Creatinine 0.8 (0.5-0.9) mg/dL Glucose 123 H (65-115) mg/dL Calcium 10.6 H (8.5-10.5) mg/dL AST 28 (0-32) U/L ALT 35 H (0-33) U/L Alkaline Phosphata se 124 H (35-105) IU/L Total Protein 7.5 (6.6-8.7) g/dL Albumin 4.5 (3.5-5.2) g/dL Intake and Output 10/02/20 10/02/20 10/03/20 14:59 22:59 06:59 Intake Total 480 / 480 Balance 480 / 480 Intake: Oral 480 / 480 Vitals: Last Vital Signs Temp 98.3 F 10/02/20 10:55 Pulse 89 10/02/20 10:55 Resp 18 10/02/20 10:55 BP 183/77 10/02/20 10:55 Pulse Ox 96 10/02/20 10:55 Discharge Plan Discharge Patient Disposition: Home Condition: Stable Prescriptions: New atorvastatin 40 mg Tablet 40 mg PO DAILY 30 Days Qty: 30 RF: 1 clopidogrel 75 mg Tablet 75 mg PO DAILY 21 Days Qty: 21 RF: 0 amlodipine 5 mg Tablet 10 mg PO DAILY 30 Days Qty: 30 RF: 1 aspirin 81 mg Tablet,Delayed Release (Dr/Ec) 81 mg PO DAILY 30 Days Qty: 30 RF: 1 Pepcid 20 mg tablet 20 mg PO BID 30 Days Qty: 60 RF: 0 Discharge Orders: Discharge Order (Routine); Ordered 10/02/20 Ordered By: Donna Jurado Other Ambulatory Orders: CA cardiac event monitor (Routine) Timeframe: 1 Day Facility: [facility] - Location: Cardiac Diagnostic Laboratory Ordered By: Donna Jurado Referrals: Tri Tan MD [Physician] - 2 weeks (OFFICE WILL CALL WITH APPOINTMENT WITH DR TAN) Chanelle Al DO [Physician] - 10/18/20 2:00 pm (New patient establishment with Dr. Al. ) Discharge Diet: Cardiac and Low Salt Discharge Activity: Resume usual activity Patient Instructions: Aspirin (By mouth), Amlodipine (By mouth), Atorvastatin (By mouth), Clopidogrel (By mouth), Ischemic Stroke (DC), Chronic Hypertension (DC), Stroke Stoplight Activity Restrictions/Additional Instructions: APPOINTMENT FOR MONITOR ON OCTOBER 09 AT 1:00 [facility] [phone] Discharge Attestations Time Spent in Discharge Care*: greater than 30 min Specific Discharge Activities: educating patient, discussing with case investigator/social workers/dc planners, documenting/other paperwork and evaluating patient/reviewing data Quality Metrics Clinical Quality Measures During this hospital stay, did patient experience: Stroke Contraindication to Antithrombotic: Antithrombotic prescribed Contraindication to Anticoagulation: Overlap treatment not indicated Contraindication to Statin: Statin prescribed Contraindication to tPA: Did not meet criteria Coding Level of Care Code Acute [employer] S[employer] Machine for [facility] Fwd Diagnoses CVA (cerebral vascular accident) I63.9 HTN (hypertension) I10
[2020-10-02 11:56] LABS: Glucose Point of Care 117 mg/dL (70-110)
--- NOTE | 2020-10-02 14:19 | PC.NURSE ---
IV removed, tip intact. Patient given discharge instructions, all questions answered. Patient discharged in the care of her sister in stable condition.
== END 2020-10-02 13:30 | disposition home or self-care (01) | DRG 66 ==
LOC: ER 13:04 → CSU 13:13 → MEDSURG 10-01 04:54
PROVIDERS: Admitting Provider Internal Medicine; Emergency Provider Family Medicine; Visit Provider Student in an Organized Health Care Education/Training Program
DX: I63.81 Other cerebral infarction due to occlusion or stenosis of small artery (principal); R20.2 Paresthesia of skin; R29.700 NIHSS score 0; I10 Essential (primary) hypertension
CPT/HCPCS: 36415; 36416; 70450; 70496; 70498; 71045; 80053; 80061; 80306; 81001; 82962; 83036; 83735; 84443; 84484; 85025; 85610; 85730; 92523; 92610; 93005; 93271; 93306; 96372; 96374; 96375; 97161; 99285; C8929; G0378; J1650; J2060; J2270; J3490; Q9967

== ENCOUNTER → 2020-10-15 12:25 | Outpatient (BNVA) | payer SELFPAY | PROVIDERS: Referring Provider Student in an Organized Health Care Education/Training Program; Visit Provider Nurse Practitioner | DX: Z86.73 Personal history of transient ischemic attack (TIA), and cerebral infarction without residual deficits (principal); Z87.891 Personal history of nicotine dependence | CPT/HCPCS: 99203; 99204 ==

== ENCOUNTER → 2020-11-16 09:15 | Outpatient (BNVA) | payer SELFPAY | PROVIDERS: PCP Family Medicine; Visit Provider Family Medicine | DX: E78.1 Pure hyperglyceridemia (principal); M54.41 Lumbago with sciatica, right side; I10 Essential (primary) hypertension | CPT/HCPCS: 80053 ==

== ENCOUNTER → 2020-12-21 09:01 | Outpatient (BNVA) | payer SELFPAY | PROVIDERS: PCP Family Medicine; Visit Provider Family Medicine | DX: E78.1 Pure hyperglyceridemia (principal); I10 Essential (primary) hypertension; M54.41 Lumbago with sciatica, right side | CPT/HCPCS: 80061 ==

== ENCOUNTER → 2021-06-21 09:00 | Outpatient (BNVA) | payer SELFPAY | PROVIDERS: PCP Family Medicine; Visit Provider Family Medicine | DX: I10 Essential (primary) hypertension (principal); E78.2 Mixed hyperlipidemia | CPT/HCPCS: 80053; 80061; 82043; 85025 ==

== ENCOUNTER → 2021-06-27 11:16 | Outpatient (BNVA) | payer SELFPAY | PROVIDERS: PCP Family Medicine; Visit Provider Family Medicine | DX: R73.9 Hyperglycemia, unspecified (principal) | CPT/HCPCS: 83036 ==

== ENCOUNTER → 2021-12-11 10:42 | Outpatient (BNVA) | payer SELFPAY | PROVIDERS: PCP Family Medicine; Visit Provider Family Medicine | DX: E78.2 Mixed hyperlipidemia (principal); F41.1 Generalized anxiety disorder; I10 Essential (primary) hypertension | CPT/HCPCS: 80053 ==

== ENCOUNTER → 2022-08-22 15:00 | Outpatient (BNVA) | payer SELFPAY | PROVIDERS: PCP Family Medicine; Visit Provider Family Medicine | DX: I10 Essential (primary) hypertension (principal); E78.2 Mixed hyperlipidemia | CPT/HCPCS: 80053; 80061; 82043; 85025 ==

== ENCOUNTER → 2022-08-25 12:13 | Outpatient (BNVA) | payer SELFPAY | PROVIDERS: PCP Family Medicine; Visit Provider Family Medicine | DX: E34.9 Endocrine disorder, unspecified (principal) | CPT/HCPCS: 82310; 83970 ==

== ENCOUNTER → 2023-06-30 09:35 | Outpatient (BNVA) | payer SELFPAY | PROVIDERS: PCP Family Medicine; Visit Provider Family Medicine | DX: E34.9 Endocrine disorder, unspecified (principal); E55.9 Vitamin D deficiency, unspecified; I10 Essential (primary) hypertension | CPT/HCPCS: 80053; 82306; 82310; 83970 ==

== ENCOUNTER → 2023-12-29 08:45 | Outpatient (BNVA) | payer OTHER, SELFPAY | PROVIDERS: PCP Family Medicine; Visit Provider Family Medicine | DX: I10 Essential (primary) hypertension (principal); Z13.6 Encounter for screening for cardiovascular disorders; E78.2 Mixed hyperlipidemia; F41.1 Generalized anxiety disorder; K21.9 Gastro-esophageal reflux disease without esophagitis; M54.41 Lumbago with sciatica, right side; Z12.31 Encounter for screening mammogram for malignant neoplasm of breast | CPT/HCPCS: 80053; 80061 ==